=== PATIENT | female | born 1980 | race Two or more races ===

== ENCOUNTER 2021-05-15 08:22 | Inpatient (IN) | payer MEDICAID, OTHER ==
[~2021-05-15] VITALS: Ht 154.9 cm; Wt 77.0 kg
[2021-05-15 09:22] LABS: Urine Bacteria FEW /hpf (None Seen); Urine Blood TRACE /uL (Negative); Urine Mucus FEW (None Seen); Urine Specific Gravity 1.028 (1.001-1.035); Urine WBC 11 /hpf (0 - 5)
[2021-05-15 10:14] LABS: Basophils # (auto) 0 10 ^3/uL (0-0.2); Basophils % (auto) 0.1 % (0.0-2.0); Eosinophils # (auto) 0 10 ^3/uL (0-0.8); Eosinophils % (auto) 0.3 % (0.0-7.0); Hematocrit 45.4 % (36.0-46.0); Lymphocytes % (auto) 15.6 % (10.0-50.0); Mean Corpuscular Hemoglobin 28.7 pg (28.0-32.0); Mean Corpuscular Hgb Conc. 33.1 g/dL (32.0-36.0); Mean Corpuscular Volume 86.7 fL (80.0-100.0); Monocytes % (auto) 7.8 % (0.0-12.0); Neutrophils # (auto) 9.5 10 ^3/uL (1.6-8.6); Neutrophils % (auto) 76.2 % (37.0-80.0); Nucleated Red Blood Cells % 0.1 %; Red Blood Cells 5.24 10^6/uL (4.0-5.20); Red Cell Distribution Width 12.3 % (11.8-14.3); White Blood Cell 12.5 10^3/uL (4.4-10.8)
[2021-05-15 10:21] LABS: Albumin 3.4 g/dL (3.4-5.0); Calcium 9.2 mg/dL (8.5-10.1); Potassium 4.6 mmol/L (3.5-5.1)
[2021-05-15 10:26] LABS: BUN/Creatinine Ratio 13.5; Bilirubin, Total 0.8 mg/dL (0.2-1.0); Total Protein 6.8 g/dL (6.4-8.2)
[2021-05-15] MEDS ORDERED: MORPHINE SULFATE INJECTION 2 MG/ML SYRG IV ONE (12:45)
[2021-05-15] MEDS ORDERED: ONDANSETRON HCL 4 MG/2 ML VIAL IV ONE (12:45)
[2021-05-15] MEDS ORDERED: cefTRIAXone 1GM/50ML D5W 50 ML IV ONE (13:30)
[2021-05-15] MEDS ORDERED: metroNIDAZOLE 500MG/100ML 100 ML IV ONE (13:30)
[2021-05-15] MEDS ORDERED: SODIUM CHLORIDE 0.9% 500 ML IVB ONE (13:30)
[2021-05-15] MEDS ORDERED: SODIUM CHLORIDE 0.9% 1,000 ML IV ONE (13:30)
[2021-05-15] MEDS ORDERED: metroNIDAZOLE 500 MG TAB PO ONE (14:30)
[2021-05-15] MEDS ORDERED: ACETAMINOPHEN 325 MG TAB PO PRN (20:45)
[2021-05-15] MEDS ORDERED: TEMAZEPAM 15 MG CAP PO PRN (20:45)
[2021-05-15] MEDS ORDERED: MORPHINE SULFATE 4 MG/ML SYR/VIAL IV PRN (20:45)
[2021-05-15] MEDS: ONDANSETRON HCL 4 MG/2 ML VIAL IV PRN (21:54)
[2021-05-15] MEDS ORDERED: metroNIDAZOLE 500MG/100ML 100 ML IV SCH (22:00)
[2021-05-15] MEDS ORDERED: metroNIDAZOLE 500 MG TAB PO SCH (23:15)
[2021-05-16] MEDS: metroNIDAZOLE 500 MG TAB PO SCH ×4 (00:05→22:12)
[2021-05-16 00:11] VITALS: BP 118/67
[2021-05-16] MEDS: HYDROcodone-ACET 5/325MG TAB PO PRN ×3 (00:22→16:12)
[2021-05-16 02:10] VITALS: BP 118/67
[2021-05-16] MEDS ORDERED: metroNIDAZOLE 500 MG TAB PO SCH (06:00)
[2021-05-16 07:01] LABS: Basophils # (auto) 0 10 ^3/uL (0-0.2); Basophils % (auto) 0.1 % (0.0-2.0); Eosinophils # (auto) 0.1 10 ^3/uL (0-0.8); Eosinophils % (auto) 1.2 % (0.0-7.0); Hematocrit 38.2 % (36.0-46.0); Hemoglobin 12.9 g/dL (12.2-16.2); Lymphocytes # (auto) 2.3 10 ^3/uL (0.4-5.4); Lymphocytes % (auto) 30.4 % (10.0-50.0); Mean Corpuscular Hemoglobin 29.3 pg (28.0-32.0); Mean Corpuscular Hgb Conc. 33.7 g/dL (32.0-36.0); Mean Corpuscular Volume 86.8 fL (80.0-100.0); Monocytes # (auto) 0.6 10 ^3/uL (0-1.3); Monocytes % (auto) 7.8 % (0.0-12.0); Neutrophils # (auto) 4.5 10 ^3/uL (1.6-8.6); Neutrophils % (auto) 60.5 % (37.0-80.0); Nucleated Red Blood Cells % 0.1 %; Red Blood Cells 4.39 10^6/uL (4.0-5.20); Red Cell Distribution Width 12.1 % (11.8-14.3); White Blood Cell 7.5 10^3/uL (4.4-10.8)
[2021-05-16 07:25] LABS: Albumin 2.6 g/dL (3.4-5.0); Calcium 8.1 mg/dL (8.5-10.1)
[2021-05-16 07:27] LABS: BUN/Creatinine Ratio 16.3; Bilirubin, Total 0.7 mg/dL (0.2-1.0); Total Protein 5.6 g/dL (6.4-8.2)
[2021-05-16] MEDS: cefTRIAXone 1GM/50ML D5W 50 ML IV SCH (08:28)
[2021-05-16] MEDS: PANTOPRAZOLE 40 MG/10 ML VIAL INJ IV SCH (08:29)
[2021-05-16] MEDS: ONDANSETRON HCL 4 MG/2 ML VIAL IV PRN (08:29)
[2021-05-16 15:57] VITALS: BP 112/67
[2021-05-16 22:00] VITALS: BP 122/77
[2021-05-17 05:00] VITALS: BP 112/74
[2021-05-17] MEDS: metroNIDAZOLE 500 MG TAB PO SCH (05:58)
[2021-05-17 09:00] VITALS: BP 111/64
[2021-05-17] MEDS: cefTRIAXone 1GM/50ML D5W 50 ML IV SCH (09:06)
[2021-05-17] MEDS: PANTOPRAZOLE 40 MG/10 ML VIAL INJ IV SCH (09:31)
== END 2021-05-17 12:38 | disposition home or self-care (01) | DRG 720 ==
LOC: ER 08:22 → OVERFLOW 20:43 → WEST WING 23:36
PROVIDERS: ADMIT Nurse Practitioner; ATTEND Internal Medicine Nephrology
DX: A41.9 Sepsis, unspecified organism (principal); K57.32 Diverticulitis of large intestine without perforation or abscess without bleeding; Z20.822 Contact with and (suspected) exposure to COVID-19; N39.0 Urinary tract infection, site not specified
CPT/HCPCS: 36415; 74176; 80053; 81001; 83690; 83735; 84702; 85025; 87426; 96361; 96365; 96375; 96376; C9113; G0378; J0696; J2405